=== PATIENT | female | born 1940 | race Caucasian/White ===

== ENCOUNTER 2016-09-27 07:21 | Day surgery (SDC) | payer MEDICARE ==
[~2016-09-27] VITALS: Ht 160 cm; Wt 67.0 kg
[~2016-09-27 07:21] MED LIST: BACT800T5 PO; LOSA50TA PO; METO50TA PO; OMPR20CCR PO
[2016-09-27 07:50] VITALS: BP 127/62; PULSE 81; RESP 18; TEMP 98.2; O2SAT 97
[2016-09-27] MEDS ORDERED: LOSA100T PO (07:50)
[2016-09-27] MEDS ORDERED: TRAM50TA PO (07:50)
[2016-09-27] MEDS ORDERED: SUCR1TAB PO (07:50)
[2016-09-27] MEDS ORDERED: METO50TA PO (07:50)
[2016-09-27] MEDS ORDERED: PANT40TA3 PO (07:50)
[2016-09-27] MEDS ORDERED: SODIUM CHLOR 0.9% 1000 ML INJ 1,000 ML IV SCH (08:00)
[2016-09-27 08:17] LABS: AUTOMATED NEUTROPHIL # 7.7 TH/MM3 (1.8-7.7); BASOPHIL # 0.1 TH/MM3 (0-0.2); BASOPHIL % 1.5 % (0.0-2.0); EOSINOPHIL # 0.1 TH/MM3 (0-0.4); EOSINOPHIL % 0.9 % (0.0-4.0); LYMPH % 7.3 % (9.0-44.0); LYMPHOCYTE # 0.7 TH/MM3 (1.0-4.8); MEAN CELL VOLUME 62.4 FL (80.0-100.0); MEAN CORPUSCULAR HEMOGLOBIN 18.9 PG (27.0-34.0); MEAN CORPUSCULAR HGB CONC 30.2 % (32.0-36.0); NEUT % 85.3 % (16.0-70.0); PLATELET COUNT 192 TH/MM3 (150-450); RED BLOOD COUNT 3.43 MIL/MM3 (4.00-5.30); WHITE BLOOD COUNT 9.1 TH/MM3 (4.0-11.0)
[2016-09-27 08:27] LABS: APTT (PATIENT) 23.4 SEC (24.3-30.1); INTERNATIONAL NORMALIZED RATIO 1.1 RATIO; PROTHROMBIN TIME - PATIENT 12.1 SEC (9.8-11.6)
[2016-09-27 08:32] LABS: HEMATOCRIT 21.4 % (35.0-46.0)
[2016-09-27 08:33] LABS: HEMO FLAGS DIFF FINAL
[2016-09-27 08:36] LABS: BICARBONATE 20.5 MEQ/L (21.0-32.0); POTASSIUM 4.3 MEQ/L (3.5-5.1)
== END 2016-09-27 10:40 | disposition home or self-care (01) ==
LOC: HROP 07:21 → HRIP 07:22 → HROP 10:40
PROVIDERS: ATTEND Internal Medicine Gastroenterology
DX: I74.09 Other arterial embolism and thrombosis of abdominal aorta (principal); I70.0 Atherosclerosis of aorta
CPT/HCPCS: 80048; 85025; 85610; 85730; 99211; G0463

== ENCOUNTER 2016-09-27 10:46 | Inpatient (IN) | payer MEDICARE ==
[~2016-09-27] VITALS: Ht 160 cm; Wt 65.6 kg
[~2016-09-27 10:46] MED LIST changes: +LOSA100T PO; +PANT40TA3 PO; +SUCR1TAB PO; +TRAM50TA PO
[2016-09-27 10:48] VITALS: BP 144/84; PULSE 84; RESP 20; TEMP 98.4; O2SAT 100
--- NOTE | 2016-09-27 11:27 | PD ---
HPI Chief Complaint: Abnormal Results Time Seen by Provider: 11:24 Travel History International Travel<30 days: No Contact w/Intl Traveler<30days: No Traveled to known affect area: No History of Present Illness HPI 75 YO F with PMH of HTN, CAD, COPD, GI bleed, PUD, anemia, colon CA presents to the ED for evaluation of "low blood count." The patient was scheduled to undergo endoscopic aortic grafting with Dr. Montenegro today but states that "I was too anemic." She endorses intermittent dizziness, dyspnea on exertion, pain in the legs with ambulation. She denies hemoptysis, hematemesis, hematochezia, melena, hematuria. She endorses panendoscopy in August with Dr. Beatty. She is a current 1.5ppd smoker. PCP Dr. Ruiz. [facility] Past Medical History Cancer: Yes (colon) Cardiac Catheterization: Yes Cardiovascular Problems: Yes (2 STENTS, WAS SUPPPOSED TO BE CATHED TODAY) Chemotherapy: Yes (11 YEARS AGO) Chest Pain: Yes COPD: Yes Diabetes: No Endocrine: No Genitourinary: No Hiatal Hernia: Yes Hypertension: Yes Immune Disorder: No Musculoskeletal: No Neurologic: No Reproductive: No Respiratory: Yes (COPD) Immunizations Current: Yes Thyroid Disease: No Tubal Ligation: Yes Past Surgical History AICD: No Section: Yes Joint Replacement: No Pacemaker: No Tonsillectomy: Yes Social History Alcohol Use: No Tobacco Use: Yes Substance Use: No Allergies-Medications (Allergen,Severity, Reaction): Coded Allergies: No Known Allergies (Verified , 09/27/16) Reported Meds & Prescriptions Reported Meds & Active Scripts Active Reported Tramadol (Tramadol HCl) 50 Mg Tab 50 Mg PO Q8H PRN Metoprolol Tartrate 50 Mg Tab 50 Mg PO DAILY Losartan (Losartan Potassium) 100 Mg Tab 100 Mg PO DAILY Pantoprazole (Pantoprazole Sodium) 40 Mg Tab 40 Mg PO BID Sucralfate 1 Gm Tab 1 Gm PO BID on empty stomach Review of Systems Except as stated in HPI: all other systems reviewed are Neg Physical Exam Narrative GENERAL: Well-nourished, well-developed pleasant white female in no acute distress. SKIN: Focused skin assessment pale, warm, dry. HEAD: Normocephalic. EYES: No scleral icterus. No injection or drainage. NECK: Supple, trachea midline. No JVD or lymphadenopathy. CARDIOVASCULAR: Regular rate and rhythm without murmurs, gallops, or rubs. RESPIRATORY: Breath sounds clear and equal bilaterally. No accessory muscle use. GASTROINTESTINAL: Abdomen soft, non-tender, nondistended. Active bowel sounds. RECTAL EXAM: No masses or tenderness, stool is brown. Guaiac positive. MUSCULOSKELETAL: No cyanosis, or edema. BLE exam:1+ DP pulses bilaterally. Strength 5/5 in bilateral lower extremities. Sensation intact to light touch distally. BACK: Nontender without obvious deformity. No CVA tenderness. Data Data Last Documented VS Vital Signs Date Time Temp Pulse Resp B/P Pulse Ox O2 Delivery O2 Flow Rate FiO2 09/27/16 10:48 98.4 84 20 144/84 100 Room Air Orders Complete Blood Count With Diff (09/27/16 11:40) Comprehensive Metabolic Panel (09/27/16 11:40) Iv Access Insert/Monitor (09/27/16 11:40) Type And Screen (09/27/16 11:40) Red Blood Cells (Rbc) (09/27/16 12:00) Blood Product Administration .UPON TRANSFUSION (09/27/16 12:00) Sodium Chlor 0.9% 250 Ml Inj (Ns 250 Ml (09/27/16 12:00) Diphenhydramine Inj (Benadryl Inj) (09/27/16 12:00) Acetaminophen (Tylenol) (09/27/16 12:00) Diet Heart Healthy (09/27/16 Lunch) Iron/Tibc Profile (09/27/16 12:00) Admit Order (Ed Use Only) (09/27/16 14:01) Labs Laboratory Tests Test 09/27/16 12:00 White Blood Count 9.2 TH/MM3 Red Blood Count 3.48 MIL/MM3 Hemoglobin 6.7 GM/DL Hematocrit 21.7 % Mean Corpuscular Volume 62.2 FL Mean Corpuscular Hemoglobin 19.3 PG Mean Corpuscular Hemoglobin 31.0 % Concent Red Cell Distribution Width 21.9 % Platelet Count 172 TH/MM3 Mean Platelet Volume 8.3 FL Neutrophils (%) (Auto) 83.5 % Lymphocytes (%) (Auto) 10.9 % Monocytes (%) (Auto) 3.8 % Eosinophils (%) (Auto) 0.6 % Basophils (%) (Auto) 1.2 % Neutrophils # (Auto) 7.7 TH/MM3 Lymphocytes # (Auto) 1.0 TH/MM3 Monocytes # (Auto) 0.3 TH/MM3 Eosinophils # (Auto) 0.1 TH/MM3 Basophils # (Auto) 0.1 TH/MM3 CBC Comment DIFF FINAL Differential Comment Sodium Level 137 MEQ/L Potassium Level 4.2 MEQ/L Chloride Level 106 MEQ/L Carbon Dioxide Level 22.6 MEQ/L Anion Gap 8 MEQ/L Blood Urea Nitrogen 16 MG/DL Creatinine 0.89 MG/DL Estimat Glomerular Filtration 62 ML/MIN Rate Random Glucose 99 MG/DL Calcium Level 8.8 MG/DL Iron Level 12 MCG/DL Total Iron Binding Capacity 514 MCG/DL Percent Iron Saturation 2.3 % Total Bilirubin 0.4 MG/DL Aspartate Amino Transf 18 U/L (AST/SGOT) Alanine Aminotransferase 15 U/L (ALT/SGPT) Alkaline Phosphatase 136 U/L Total Protein 7.3 GM/DL Albumin 3.4 GM/DL Blood Type B POSITIVE Antibody Screen NEGATIVE Crossmatch Leukocyte-Reduced Red Blood Cells Blood Bank Comment MDM Medical Decision Making Medical Screen Exam Complete: Yes Emergency Medical Condition: Yes Differential Diagnosis symptomatic anemia versus GI bleed versus colon CA versus electrolyte abnormality versus other Narrative Course 75 YO F with PMH of HTN, CAD, COPD, GI bleed, PUD, anemia, colon CA presents to the ED for evaluation of "low blood count." The patient was scheduled to undergo endoscopic aortic grafting with Dr. Montenegro today but states that "I was too anemic." She endorses intermittent dizziness, dyspnea on exertion, pain in the legs with ambulation. She denies hemoptysis, hematemesis, hematochezia, melena, hematuria. She endorses panendoscopy in August with Dr. Beatty. PCP Dr. Ruiz. Vitals reviewed. Physical exam reveals a pale white female in no acute distress. Chest clear to auscultation bilaterally. Abdomen soft, nontender. No edema in the lower extremities. Guaiac positive on rectal exam. CBC: WBC 9.2. Hemoglobin 6.7. Hematocrit 21.7. MCV 62.7. Iron: 12, TIBC 5.14. Type and screen ordered. 2 units PRBC, Benadryl and Tylenol ordered. Plan to admit to the hospitalist for further evaluation. Patient is agreeable to this plan. I spoke with Dr. Bray who agrees to accept the patient to the medicine service. Please see medicine notes for disposition. HemaPrompt Point of Care Internal Pos. & Neg. Controls: Passed Fecal Specimen Occult Blood: Positive Ebonie Keys Sep 27, 2016 11:27
[2016-09-27] MEDS ORDERED: ACETAMINOPHEN 325 MG TAB PO ONE (12:00)
[2016-09-27] MEDS ORDERED: SODIUM CHLOR 0.9% 250 ML INJ 250 ML IV ONE (12:00)
[2016-09-27] MEDS ORDERED: diphenhydrAMINE HCL 50 MG/ML VIAL IV ONE (12:00)
[2016-09-27 12:09] LABS: AUTOMATED NEUTROPHIL # 7.7 TH/MM3 (1.8-7.7); BASOPHIL # 0.1 TH/MM3 (0-0.2); BASOPHIL % 1.2 % (0.0-2.0); EOSINOPHIL # 0.1 TH/MM3 (0-0.4); EOSINOPHIL % 0.6 % (0.0-4.0); LYMPH % 10.9 % (9.0-44.0); MEAN CELL VOLUME 62.2 FL (80.0-100.0); MEAN CORPUSCULAR HEMOGLOBIN 19.3 PG (27.0-34.0); MONO % 3.8 % (0.0-8.0); NEUT % 83.5 % (16.0-70.0); PLATELET COUNT 172 TH/MM3 (150-450); RED BLOOD COUNT 3.48 MIL/MM3 (4.00-5.30); RED CELL DISTRIBUTION WIDTH 21.9 % (11.6-17.2); WHITE BLOOD COUNT 9.2 TH/MM3 (4.0-11.0)
[2016-09-27 12:20] LABS: HEMO FLAGS DIFF FINAL
[2016-09-27 12:21] LABS: HEMATOCRIT 21.7 % (35.0-46.0)
[2016-09-27 12:27] LABS: ANION GAP 8 MEQ/L (5-15); AST (GOT) 18 U/L (15-37); BICARBONATE 22.6 MEQ/L (21.0-32.0); BLOOD UREA NITROGEN 16 MG/DL (7-18); CHLORIDE 106 MEQ/L (98-107); GLOMERULAR FILTRATION RATE 62 ML/MIN (>89); POTASSIUM 4.2 MEQ/L (3.5-5.1); SODIUM (NA) 137 MEQ/L (136-145)
[2016-09-27 12:28] LABS: ALT (GPT) 15 U/L (10-53)
[2016-09-27 12:30] LABS: ALKALINE PHOSPHATASE 136 U/L (45-117); TOTAL BILIRUBIN ADULT 0.4 MG/DL (0.2-1.0)
[2016-09-27] MEDS ORDERED: HYDROmorphone HCL PF 1 MG/ML VIAL IVS ONE (12:30)
[2016-09-27 12:51] LABS: TRANSFERRIN IRON PROFILE 367 MG/DL (200-360)
[2016-09-27 14:11] VITALS: BP 129/60; PULSE 78; RESP 21; TEMP 96.7; O2SAT 97
[2016-09-27 14:31] VITALS: BP 130/62; PULSE 80; RESP 21; TEMP 97.4; O2SAT 100
--- NOTE | 2016-09-27 15:54 | HHI.HP ---
HPI Service [facility] Hospitalists Primary Care Physician Hitesh Ruiz MD (Paul) Admission Diagnosis anemia, GI bleed Chief Complaint: Anemia Travel History International Travel<30 Days: No Contact w/Intl Traveler <30 Da: No Traveled to Known Affected Are: No History of Present Illness Ms. Guardado is a pleasant 75 y/o WF with CAD s/p PTCA with stent placement in 2004, hx of colon cancer, GIB, gastric and colonic ulcers, HTN, and tobacco abuse. Pt presented to the ED for evaluation of anemia. She was previously admitted in 11/2015 with symptomatic anemia and post-prandial chest pain. At that time was taking a lot of NSAIDs. Pt received 4 units of PRBCs during that admission. She underwent evaluation with EGD/colonoscopy with Dr. Meadows which revealed multiple medium sized non-bleeding ulcers in the gastric antrum, medium sized non-bleeding ulcers in the duodenal bulb, duodenal inflammation was found int he bulb and second portion of the duodenum, multiple medium sized non-bleeding ulcers throughout the entire examined colon, and a pedunculated poly in the sigmoid colon. She was also admitted to [facility] in 2016 with symptomatic anemia and underwent evaluation with EGD on 07/08/16 which noted gastritis, gastric ulcer, duodenitis and hiatal hernia. She was again taking NSAIDs at that time and reports that she required blood transfusion during that admission. Pt followed with Dr. Aguirre as an outpt and was sent for a CTA of the abd/pelvis which revealed high grade distal aortic stenosis and severe diffuse iliac disease, large cystic left adnexal mass but the mesenteric vessels appear intact and relatively healthy. The patient was scheduled to undergo endovascular procedure with IR today with Dr. Montenegro but pre- op labs revealed a significant anemia and pt was sent to the ED for blood transfusion. Her Hgb was 6.5/Hct 31.4, MCV 62.4. She was noted to be Hemoccult positive in the ED. Pt reports that she has had some intermittent dizziness, dyspnea on exertion for the last few weeks. She has significant claudication which she reports limits her ability to do much at home. She has not been eating well because she can't stand up to cook any food. She denies hematemesis , hematochezia, melena, hematuria. She noted some faint BRBPR on the tissue today when she wiped but otherwise has not noted any active GIB. Pt denies any abdominal pain, palpitations, nausea/vomiting. She has had some minimal reflux. Pt reports that she has been compliant with her Protonix and Carafate. She denies any NSAID use since 07/2016. Review of Systems Constitutional: DENIES: Fever, Chills Eyes: DENIES: Vision loss Ears, nose, mouth, throat: DENIES: Epistaxis Respiratory: DENIES: Cough Cardiovascular: COMPLAINS OF: Chest pain (chronic), Dyspnea on Exertion, DENIES: Palpitations, Lower Extremity Edema Gastrointestinal: COMPLAINS OF: BRB per rectum, See HPI, DENIES: Abdominal pain, Black stools, Bloody stools, Constipation, Diarrhea, Nausea, Vomiting Genitourinary: DENIES: Hematuria, Dysuria Musculoskeletal: DENIES: Back pain Integumentary: DENIES: Rash Hematologic/lymphatic: DENIES: Bruising Neurologic: DENIES: Headache Psychiatric: DENIES: Confusion Past Family Social History Past Medical History CAD HTN Tobacco abuse Hyperlipidemia Hx of colon/rectal cancer Valvular heart disease COPD, PFT in 08/2015 with FEV1 74% predicted 2D echo (01/04/2012) - Moderate concentric hypertrophy, hyperdynamic systolic function with EF 70% - Evidence of diastolic dysfunction - LA is mildly dilated - Aortic sclerosis without stenosis - Mild thickening of the mitral valve leaflets, moderate mitral regurgitation , mild mitral annular calcification Past Surgical History Cesarian section x 2 Tubal ligation PTCA with stent placement EGD/colonoscopy with Dr. Meadows 11/26/15 - multiple medium sized non-bleeding ulcers in the gastric antrum, biopsies were taken - medium sized non-bleeding ulcers in the duodenal bulb, biopsies were taken - duodenal inflammation was found int he bulb and second portion of the duodenum - multiple medium sized non-bleeding ulcers throughout the entire examined colon, biopsies were taken - a pedunculated poly in the sigmoid colon; polypectomy performed Reported Medications Tramadol (Tramadol HCl) 50 Mg Tab 50 Mg PO Q8H PRN Metoprolol Tartrate 50 Mg Tab 50 Mg PO DAILY Losartan (Losartan Potassium) 100 Mg Tab 100 Mg PO DAILY Pantoprazole (Pantoprazole Sodium) 40 Mg Tab 40 Mg PO BID Sucralfate 1 Gm Tab 1 Gm PO BID on empty stomach Allergies: Coded Allergies: No Known Allergies (Verified , 09/27/16) Family History Noncontributory Social History Pt smokes 1ppd but was previously a 3ppd smoker x 60 years Rare alcohol use Denies any drug use Physical Exam Vital Signs Vital Signs Date Time Temp Pulse Resp B/P Pulse Ox O2 Delivery O2 Flow Rate FiO2 09/27/16 14:31 97.4 80 21 130/62 100 Room Air 09/27/16 14:11 96.7 78 21 129/60 97 09/27/16 10:48 98.4 84 20 144/84 100 Room Air Physical Exam GENERAL: This is a well-nourished, well-developed patient, in no apparent distress. SKIN: No rashes, ecchymoses or lesions. Cool and dry. HEAD: Atraumatic. Normocephalic. No temporal or scalp tenderness. EYES: Pupils equal round and reactive. Extraocular motions intact. No scleral icterus. No injection or drainage. ENT: Nose without bleeding, purulent drainage or septal hematoma. Throat without erythema, tonsillar hypertrophy or exudate. Uvula midline. Airway patent. NECK: Trachea midline. No JVD or lymphadenopathy. Supple, nontender, no meningeal signs. CARDIOVASCULAR: Regular rate and rhythm without murmurs, gallops, or rubs. RESPIRATORY: Clear to auscultation. Breath sounds equal bilaterally. No wheezes , rales, or rhonchi. GASTROINTESTINAL: Abdomen soft, non-tender, nondistended. No hepato-splenomegaly , or palpable masses. No guarding. MUSCULOSKELETAL: Extremities without clubbing, cyanosis, or edema. No joint tenderness, effusion, or edema noted. No calf tenderness. Negative Homans sign bilaterally. NEUROLOGICAL: Awake and alert. Cranial nerves II through XII intact. Motor and sensory grossly within normal limits. Five out of 5 muscle strength in all muscle groups. Normal speech. Laboratory Laboratory Tests Test 09/27/16 12:00 White Blood Count 9.2 Red Blood Count 3.48 Hemoglobin 6.7 Hematocrit 21.7 Mean Corpuscular Volume 62.2 Mean Corpuscular Hemoglobin 19.3 Mean Corpuscular Hemoglobin 31.0 Concent Red Cell Distribution Width 21.9 Platelet Count 172 Mean Platelet Volume 8.3 Neutrophils (%) (Auto) 83.5 Lymphocytes (%) (Auto) 10.9 Monocytes (%) (Auto) 3.8 Eosinophils (%) (Auto) 0.6 Basophils (%) (Auto) 1.2 Neutrophils # (Auto) 7.7 Lymphocytes # (Auto) 1.0 Monocytes # (Auto) 0.3 Eosinophils # (Auto) 0.1 Basophils # (Auto) 0.1 CBC Comment DIFF FINAL Differential Comment Sodium Level 137 Potassium Level 4.2 Chloride Level 106 Carbon Dioxide Level 22.6 Anion Gap 8 Blood Urea Nitrogen 16 Creatinine 0.89 Estimat Glomerular Filtration 62 Rate Random Glucose 99 Calcium Level 8.8 Iron Level 12 Total Iron Binding Capacity 514 Percent Iron Saturation 2.3 Total Bilirubin 0.4 Aspartate Amino Transf 18 (AST/SGOT) Alanine Aminotransferase 15 (ALT/SGPT) Alkaline Phosphatase 136 Total Protein 7.3 Albumin 3.4 Blood Type B POSITIVE Antibody Screen NEGATIVE Crossmatch Leukocyte-Reduced Red Blood Cells Blood Bank Comment Result Diagram: 09/27/16 1200 09/27/16 1200 Septic Shock Reassessment Heart: Regular rate and rhythm Lungs: Clear Skin: Warm Assessment and Plan Problem List: (1) Symptomatic anemia Status: Acute Plan: - Pt is a 75 y/o female with CAD s/p PTCA with stent placement in 2004, hx of colon cancer, GIB, gastric and colonic ulcers. - She presented to the ED for evaluation of anemia. - She was previously admitted in 11/2015 with symptomatic anemia and post- prandial chest pain and at that time was taking a lot of NSAIDs. Pt received 4 units of PRBCs during that admission. She underwent EGD/colonoscopy with Dr. Meadows 11/26/15 which revealed multiple medium sized non-bleeding ulcers in the gastric antrum , medium sized non-bleeding ulcers in the duodenal bulb, duodenal inflammation was found int he bulb and second portion of the duodenum, multiple medium sized non-bleeding ulcers throughout the entire examined colon, and a pedunculated poly in the sigmoid colon. - She was also admitted to [facility] in 07/2016 with symptomatic anemia and had an EGD on 07/08/16 --> gastritis, gastric ulcer, duodenitis and hiatal hernia. - Pt had been scheduled to undergo endovascular procedure with IR today with Dr. Montenegro but pre-op labs revealed a significant anemia and pt was sent to the ED for blood transfusion. Her Hgb was 6.5/Hct 31.4, MCV 62.4. She was noted to be Hemoccult positive in the ED. No obvious GIB. - Pt noted to be iron deficient as well and has not been eating well. - Pt currently receiving 2 units PRBCs in the ED - We will give IV Venofer. She states that in the past oral iron supplements have given her diarrhea. - Consult gastroenterology - Protonix 40mg IV BID - Cont. Carafate - Monitor H/H - Supportive care - DVT prophylaxis with SCDs (2) Arterial vascular disease Status: Acute Plan: - Pt had an outpt CTA of the abd/pelvis which revealed high grade distal aortic stenosis and severe diffuse iliac disease, large cystic left adnexal mass but the mesenteric vessels appear intact and relatively healthy. - The patient was scheduled to undergo endovascular procedure with IR today with Dr. Montenegro but due to anemia this was cancelled. - Pt is very concerned about being able to have this procedure performed because it is significantly limiting her daily life due to claudication. - Discussed with the pt that should she have endovascular stenting that she would likely require anticoagulants and that the risks/benefits of proceeding with this would need to be discussed with GI due to her hx of GIB and anemia - She has been referred as an outpt to [facility] for the adnexal mass (3) HTN (hypertension) Status: Chronic Plan: - Home meds continued - Monitor (4) CAD (coronary artery disease) Status: Chronic (5) Tobacco abuse Status: Chronic Plan: - Tobacco cessation. Assessment and Plan Patient examined. Assessment and plan formulated with Nafisa Parker PA-C. I agree with the above. admitted for symptomatic anemia. blood loss. heme pos stool with hx of gastric ulcers/duodenal ulcers/colonic ulcers. past hx nsaid induced ulcers. pt now denies nsaid use. her aorta and iliac stent placed on hold. 2 units blood, iv iron, GI consult for egd prior to referral back to IR to assure ok to proceed with planned procedure. Physician Certification 2 Midnight Certification Type: Admission for Inpatient Services Order for Inpatient Services The services are ordered in accordance with Medicare regulations or non- Medicare payer requirements, as applicable. In the case of services not specified as inpatient-only, they are appropriately provided as inpatient services in accordance with the 2-midnight benchmark. Estimated LOS (days): 3 3 days is the estimated time the patient will need to remain in the hospital, assuming treatment plan goals are met and no additional complications. Post-Hospital Plan: Not yet determined Nafisa Parker Sep 27, 2016 15:54 Marvin Bray MD Sep 27, 2016 21:55
[2016-09-27] MEDS ORDERED: ACETAMINOPHEN 325 MG TAB PO PRN (16:00)
[2016-09-27] MEDS ORDERED: ONDANSETRON HCL 4 MG/2 ML VIAL IV PRN (16:00)
[2016-09-27 16:57] VITALS: BP 141/65; PULSE 68; RESP 21; TEMP 98.9; O2SAT 100
--- NOTE | 2016-09-27 16:58 | PD.CONS ---
HPI History of Present Illness This is a 75 year old female with hx CAD s/p stenting, GIB, gastric and colonic ulcers, colon ca, who presented to the ER for anemia after returned labwork for an endovascular procedure scheduled for today, found to have hgb 6.8 and guiac pos stool. She admits vaginal bleeding just today, pale pink and she thinks from strain to come down stairs. Same for the rectal bleeding, faint pink and just today. She does have occasional BRBPR, scant spots on wipe intermittently if she has frequent BM. She was diagnosed with colon ca 12 years ago, treated with radiation and chemo, fully in remission. She had EGD and colonoscopy in July [address] Aguirre, findings gastritis, hiatal hernia, gastric ulcer, duodenitis, colon polyp, path benign. Prior she had EGD and colonoscopy with Dr Meadows with findings of non-bleeding ulcers antrum duodenal bulb and colon, polyp sigmoid. She has hx frequent NSAID use up until July 2016, her last admission at [facility]. Not on blood thinners. No pacemaker. No dark tarry stools, abd pain, vomiting, weight loss. She has been having leg pain and weakness. (Stephanie Plaza) PFSH Past Medical History hx colon ca seasonal allergies "chronic cigarette cough" claudication Past Surgical History c section x 2 tonsillectomy (Stephanie Plaza) Coded Allergies: No Known Allergies (Verified , 09/27/16) Family History DM CVD thyroid "problems" prostate ca Social History rare ETOH 1ppd no illicit drug use (Stephanie Plaza) Review of Systems Constitutional: COMPLAINS OF: Fever (mild subjective occasionally), DENIES: Weight loss Eyes: DENIES: Blurred vision Ears, nose, mouth, throat: DENIES: Hearing loss Respiratory: COMPLAINS OF: Cough, DENIES: Hemoptysis Cardiovascular: DENIES: Palpitations Gastrointestinal: COMPLAINS OF: Nausea, DENIES: Abdominal pain, Black stools, Bloody stools, Constipation, Diarrhea, Vomiting, Hematemesis Genitourinary: DENIES: Hematuria Musculoskeletal: DENIES: Joint Swelling Integumentary: DENIES: Jaundice Neurologic: COMPLAINS OF: Localized weakness (weakness, pain in legs) Psychiatric: DENIES: Confusion (Mela,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) GI Exam Vitals I&O Vital Signs Date Time Temp Pulse Resp B/P Pulse Ox O2 Delivery O2 Flow Rate FiO2 09/27/16 14:31 97.4 80 21 130/62 100 Room Air 09/27/16 14:11 96.7 78 21 129/60 97 09/27/16 10:48 98.4 84 20 144/84 100 Room Air Laboratory Test 09/27/16 12:00 White Blood Count 9.2 TH/MM3 Red Blood Count 3.48 MIL/MM3 Hemoglobin 6.7 GM/DL Hematocrit 21.7 % Mean Corpuscular Volume 62.2 FL Mean Corpuscular Hemoglobin 19.3 PG Mean Corpuscular Hemoglobin 31.0 % Concent Red Cell Distribution Width 21.9 % Platelet Count 172 TH/MM3 Mean Platelet Volume 8.3 FL Neutrophils (%) (Auto) 83.5 % Lymphocytes (%) (Auto) 10.9 % Monocytes (%) (Auto) 3.8 % Eosinophils (%) (Auto) 0.6 % Basophils (%) (Auto) 1.2 % Neutrophils # (Auto) 7.7 TH/MM3 Lymphocytes # (Auto) 1.0 TH/MM3 Monocytes # (Auto) 0.3 TH/MM3 Eosinophils # (Auto) 0.1 TH/MM3 Basophils # (Auto) 0.1 TH/MM3 CBC Comment DIFF FINAL Differential Comment Sodium Level 137 MEQ/L Potassium Level 4.2 MEQ/L Chloride Level 106 MEQ/L Carbon Dioxide Level 22.6 MEQ/L Anion Gap 8 MEQ/L Blood Urea Nitrogen 16 MG/DL Creatinine 0.89 MG/DL Estimat Glomerular Filtration 62 ML/MIN Rate Random Glucose 99 MG/DL Calcium Level 8.8 MG/DL Iron Level 12 MCG/DL Total Iron Binding Capacity 514 MCG/DL Percent Iron Saturation 2.3 % Total Bilirubin 0.4 MG/DL Aspartate Amino Transf 18 U/L (AST/SGOT) Alanine Aminotransferase 15 U/L (ALT/SGPT) Alkaline Phosphatase 136 U/L Total Protein 7.3 GM/DL Albumin 3.4 GM/DL Blood Type B POSITIVE Antibody Screen NEGATIVE Crossmatch Leukocyte-Reduced Red Blood Cells Blood Bank Comment Physical Examination HEENT: PERRL; normocephalic; atraumatic; no jaundice. CHEST: CTA CARDIAC: RRR ABDOMEN: Soft, nondistended, nontender; no hepatosplenomegaly; bowel sounds are present in all four quadrants. EXTREMITIES: No clubbing, cyanosis, or edema. SKIN: Normal; no rash; no jaundice. CLIENT ACCOUNT REPRESENTATIVE: No focal deficits; alert and oriented times three. (Stephanie Plaza) Assessment and Plan Plan ASSESSMENT - anemia - Hgb 6.8 on admission. hypchromic, microcytic, poss LORELEI. iron 12L, TIBC 514H, sat 2.3L hx gastric, duodenal, and colonic ulcers. EGD/COLONOSCOPY 07/2016 --> gastritis, gastric ulcer, duodenitis, hiatal hernia, colon polyp. Frequent NSAID use until 07/2016. pt admits seeing pale pink tinge on wipe today but none prior. PLAN - EGD in am - obtain consents - NPO after midnight - SU today - monitor HH - transfuse as needed - further recommendations to follow This pt seen by myself and Dr Perdomo and this note is written on his behalf ( Stephanie Plaza) Physician Comments Patient seen and examined Agree with above Continue with current supportive care Monitor labs We will plan for an EGD tomorrow (Jefe Perdomo MD) Stephanie Plaza Sep 27, 2016 16:58 Jefe Perdomo MD Sep 27, 2016 22:57
[2016-09-27] MEDS: PANTOPRAZOLE SODIUM 40 MG VIAL IV PUSH SCH (17:57)
[2016-09-27 18:20] VITALS: BP 142/68; PULSE 81; RESP 17; TEMP 99.2; O2SAT 99
[2016-09-27 20:00] VITALS: BP 173/71; PULSE 83; RESP 21; TEMP 97.1; O2SAT 97
[2016-09-27] MEDS: SUCRALFATE 1 GM TAB PO SCH (21:00)
[2016-09-27] MEDS: IRON SUCROSE INJ 200 MG in SODIUM CHLORIDE 0.9% INJ 100 ML IV SCH (23:12)
[2016-09-28] VITALS (9 sets, daily range): BP systolic 118–184; BP diastolic 56–79; PULSE 72–89; RESP 16–20; TEMP 96.4–98.2; O2SAT 93–98
[2016-09-28] MEDS ORDERED: SODIUM CHLORID 0.9% 500 ML IV PRN (01:30)
[2016-09-28] MEDS ORDERED: CHLORHEXIDINE GLUCONATE 2 % 1 PACK (2 CLOTHS) TOPICAL PRN (01:30)
[2016-09-28] MEDS ORDERED: INSULIN HUMAN REGULAR 1,000 UNITS/10 ML VIAL SQ PRN (01:30)
[2016-09-28] MEDS ORDERED: LACTATED RINGER'S 1000 ML IV PRN (01:30)
[2016-09-28] MEDS ORDERED: POVIDONE IODINE 5% (ANTISEPSIS KIT) 4 APPLICATIONS EACH NARE PRN (01:30)
[2016-09-28] MEDS: PANTOPRAZOLE SODIUM 40 MG VIAL IV PUSH SCH ×2 (05:27→17:00)
[2016-09-28 05:57] LABS: BICARBONATE 23.5 MEQ/L (21.0-32.0); MAGNESIUM 2.3 MG/DL (1.5-2.5)
[2016-09-28 06:00] LABS: AUTOMATED NEUTROPHIL # 5.3 TH/MM3 (1.8-7.7); BASOPHIL # 0.1 TH/MM3 (0-0.2); EOSINOPHIL # 0.2 TH/MM3 (0-0.4); EOSINOPHIL % 2.5 % (0.0-4.0); HEMATOCRIT 31.3 % (35.0-46.0); LYMPH % 11.4 % (9.0-44.0); LYMPHOCYTE # 0.8 TH/MM3 (1.0-4.8); MEAN CELL VOLUME 69.9 FL (80.0-100.0); MEAN CORPUSCULAR HEMOGLOBIN 22.6 PG (27.0-34.0); MEAN CORPUSCULAR HGB CONC 32.3 % (32.0-36.0); MONO % 6.6 % (0.0-8.0); NEUT % 78.5 % (16.0-70.0); PLATELET COUNT 134 TH/MM3 (150-450); RED BLOOD COUNT 4.48 MIL/MM3 (4.00-5.30); RED CELL DISTRIBUTION WIDTH 26.8 % (11.6-17.2); WHITE BLOOD COUNT 6.7 TH/MM3 (4.0-11.0)
[2016-09-28 06:36] LABS: HEMO FLAGS AUTO DIFF
[2016-09-28] MEDS: METOPROLOL TARTRATE 50 MG TAB PO SCH (08:37)
[2016-09-28] MEDS: LOSARTAN 50 MG TAB PO SCH (09:00)
[2016-09-28] MEDS: NICOTINE 21 MG/24 HR PATCH T-DERMAL SCH (09:00)
[2016-09-28] MEDS: SUCRALFATE 1 GM TAB PO SCH ×2 (09:00→21:47)
[2016-09-28] MEDS: IRON SUCROSE INJ 200 MG in SODIUM CHLORIDE 0.9% INJ 100 ML IV SCH (09:00)
[2016-09-28] MEDS ORDERED: PROPOFOL 200 MG/20 ML AMP IV ONE (09:21)
--- NOTE | 2016-09-28 09:31 | PD.PROCEDR ---
GI Procedure REFERRING PHYSICIAN Dr. Bray PROCEDURE PERFORMED EGD with cautery/ablation INDICATION FOR PROCEDURE Anemia PROCEDURE: The procedure, risks and benefits were discussed with Ms. Guardado and informed consent was obtained. Anesthesia sedated her with Diprivan. She was placed in the left lateral decubitus position. EGD: The Pentax videoscope was introduced through the oropharynx and advanced to the second portion of the duodenum under direct visualization. Retroflexion was performed in the stomach. FINDINGS: Esophagus this was normal Stomach there was patchy erythema in the antrum but no ulcerations or erosions no blood or bleeding Duodenum there were multiple AVMs noted in the duodenal bulb and descending duodenum all were ablated with a ball-tipped heater probe otherwise duodenum was unremarkable ESTIMATED BLOOD LOSS: None SPECIMENS REMOVED: None COMPLICATIONS: None IMPRESSION: Mild gastritis Duodenal AVMs PLAN: Continue with current supportive care Advance diet Continue Protonix Monitor labs and transfuse as needed Recommend outpatient capsule endoscopy Follow-up with GI post discharge Jefe Perdomo MD Sep 28, 2016 09:31
[2016-09-28 10:19] LABS: SCAN/DIFF AUTO DIFF CONFIRMED
[2016-09-28] MEDS ORDERED: cloNIDine HCL 0.1 MG TAB PO PRN (10:45)
--- NOTE | 2016-09-28 13:06 | HHI.PR ---
Subjective Remarks Pt had EGD today which revealed patchy erythema in the antrum but no ulcerations or erosions no blood or bleeding and in the duodenum there were multiple AVMs noted in the duodenal bulb and descending duodenum which were ablated with a ball-tipped heater probe. Pt tolerating diet post-procedure. She is demanding to see IR about doing the endovascular procedure which she was supposed to have done yesterday. Objective Vitals Vital Signs Date Time Temp Pulse Resp B/P Pulse Ox O2 Delivery O2 Flow Rate FiO2 09/28/16 12:00 96.4 72 16 142/66 95 09/28/16 09:47 74 18 188/86 100 09/28/16 09:37 71 18 187/84 98 09/28/16 09:27 98.0 70 18 177/80 100 09/28/16 08:00 97.7 89 16 157/67 94 09/28/16 05:51 78 144/68 09/28/16 04:00 96.6 89 20 182/77 94 09/28/16 00:00 97.3 85 20 162/70 93 09/27/16 20:00 97.1 83 21 173/71 97 09/27/16 18:20 99.2 81 17 142/68 99 09/27/16 16:57 98.9 68 21 141/65 100 Room Air 09/27/16 14:31 97.4 80 21 130/62 100 Room Air 09/27/16 14:11 96.7 78 21 129/60 97 09/27/16 09/27/16 09/28/16 14:59 22:59 06:59 Intake Total 490 ml Balance 490 ml Intake Oral 240 ml Packed Cells 250 ml # Voids 2 2 Result Diagram: 09/28/16 0346 09/28/16 0346 Other Results Laboratory Tests Test 09/27/16 09/28/16 12:00 03:46 White Blood Count 9.2 TH/MM3 6.7 TH/MM3 Red Blood Count 3.48 MIL/MM3 4.48 MIL/MM3 Hemoglobin 6.7 GM/DL 10.1 GM/DL Hematocrit 21.7 % 31.3 % Mean Corpuscular Volume 62.2 FL 69.9 FL Mean Corpuscular Hemoglobin 19.3 PG 22.6 PG Mean Corpuscular Hemoglobin 31.0 % 32.3 % Concent Red Cell Distribution Width 21.9 % 26.8 % Platelet Count 172 TH/MM3 134 TH/MM3 Mean Platelet Volume 8.3 FL 8.3 FL Neutrophils (%) (Auto) 83.5 % 78.5 % Lymphocytes (%) (Auto) 10.9 % 11.4 % Monocytes (%) (Auto) 3.8 % 6.6 % Eosinophils (%) (Auto) 0.6 % 2.5 % Basophils (%) (Auto) 1.2 % 1.0 % Neutrophils # (Auto) 7.7 TH/MM3 5.3 TH/MM3 Lymphocytes # (Auto) 1.0 TH/MM3 0.8 TH/MM3 Monocytes # (Auto) 0.3 TH/MM3 0.4 TH/MM3 Eosinophils # (Auto) 0.1 TH/MM3 0.2 TH/MM3 Basophils # (Auto) 0.1 TH/MM3 0.1 TH/MM3 CBC Comment DIFF FINAL AUTO DIFF Differential Comment AUTO DIFF CONFIRMED Sodium Level 137 MEQ/L 141 MEQ/L Potassium Level 4.2 MEQ/L 4.0 MEQ/L Chloride Level 106 MEQ/L 109 MEQ/L Carbon Dioxide Level 22.6 MEQ/L 23.5 MEQ/L Anion Gap 8 MEQ/L 9 MEQ/L Blood Urea Nitrogen 16 MG/DL 20 MG/DL Creatinine 0.89 MG/DL 0.80 MG/DL Estimat Glomerular Filtration 62 ML/MIN 70 ML/MIN Rate Random Glucose 99 MG/DL 83 MG/DL Calcium Level 8.8 MG/DL 8.8 MG/DL Iron Level 12 MCG/DL Total Iron Binding Capacity 514 MCG/DL Percent Iron Saturation 2.3 % Total Bilirubin 0.4 MG/DL Aspartate Amino Transf 18 U/L (AST/SGOT) Alanine Aminotransferase 15 U/L (ALT/SGPT) Alkaline Phosphatase 136 U/L Total Protein 7.3 GM/DL Albumin 3.4 GM/DL Blood Type B POSITIVE Antibody Screen NEGATIVE Crossmatch Leukocyte-Reduced Red Blood Cells Blood Bank Comment Magnesium Level 2.3 MG/DL Objective Remarks General: NAD< AAOx3 Chest: CTA bilaterally Cardiac: Regular Abd: +BS, soft ND/NT Ext: No edema A/P Problem List: (1) Symptomatic anemia Status: Acute Plan: - Pt is a 75 y/o female with CAD s/p PTCA with stent placement in 2004, hx of colon cancer, GIB, gastric and colonic ulcers. - She presented to the ED for evaluation of anemia. - She was previously admitted in 11/2015 with symptomatic anemia and post- prandial chest pain and at that time was taking a lot of NSAIDs. Pt received 4 units of PRBCs during that admission. She underwent EGD/colonoscopy with Dr. Meadows 11/26/15 which revealed multiple medium sized non-bleeding ulcers in the gastric antrum , medium sized non-bleeding ulcers in the duodenal bulb, duodenal inflammation was found int he bulb and second portion of the duodenum, multiple medium sized non-bleeding ulcers throughout the entire examined colon, and a pedunculated poly in the sigmoid colon. - She was also admitted to [facility] in 07/2016 with symptomatic anemia and had an EGD on 07/08/16 --> gastritis, gastric ulcer, duodenitis and hiatal hernia. - Pt had been scheduled to undergo endovascular procedure with IR today with Dr. Montenegro but pre-op labs revealed a significant anemia and pt was sent to the ED for blood transfusion. Her Hgb was 6.5/Hct 31.4, MCV 62.4. She was noted to be Hemoccult positive in the ED. No obvious GIB. - Pt noted to be iron deficient as well and has not been eating well. - Pt received 2 units PRBCs with improvement in her Hgb to 10 today - Cont. IV Venofer. She states that in the past oral iron supplements have given her diarrhea. - Appreciate gastroenterology consultation - Pt underwent EGD (09/28) --> patchy erythema in the antrum but no ulcerations or erosions no blood or bleeding and in the duodenum there were multiple AVMs noted in the duodenal bulb and descending duodenum which were ablated with a ball-tipped heater probe. - Protonix 40mg IV BID - Cont. Carafate - Monitor H/H - Supportive care - DVT prophylaxis with SCDs (2) Arterial vascular disease Status: Acute Plan: - Pt had an outpt CTA of the abd/pelvis which revealed high grade distal aortic stenosis and severe diffuse iliac disease, large cystic left adnexal mass but the mesenteric vessels appear intact and relatively healthy. - The patient was scheduled to undergo endovascular procedure with IR today with Dr. Montenegro but due to anemia this was cancelled. - Pt is very concerned about being able to have this procedure performed because it is significantly limiting her daily life due to claudication. - Discussed with the pt that should she have endovascular stenting that she would likely require anticoagulants and that the risks/benefits of proceeding with this would need to be discussed with GI due to her hx of GIB and anemia - Pt demanding to see IR - She has been referred as an outpt to [facility] for the adnexal mass (3) HTN (hypertension) Status: Chronic Plan: - Home meds continued - Monitor (4) CAD (coronary artery disease) Status: Chronic (5) Tobacco abuse Status: Chronic Plan: - Tobacco cessation. Assessment and Plan Patient examined. Assessment and plan formulated with Nafisa Parker PA-C. I agree with the above. acute and chronic blood loss anemia. recent gastric/duodenal ulcers. now egd today duodenal avm's cauterized. pill endoscopy recommended. 2units blood and iv iron given. pt wants to proceed with IR consult and stenting of aorta and iliac as she is having alot of pain. she is counseled that if a drug such as plavix is needed then it could exacerbate her gib risks. she wants to proceed. Nafisa Parker Sep 28, 2016 13:06 Marvin Bray MD Sep 28, 2016 16:04
[2016-09-28] MEDS: REMOVE OLD NICODERM (NICOTINE) PATCH T-DERMAL SCH (21:00)
[2016-09-28] MEDS: TEMAZEPAM 15 MG CAP PO PRN (22:55)
[2016-09-29] VITALS (11 sets, daily range): BP systolic 123–166; BP diastolic 51–82; PULSE 61–95; RESP 16–20; TEMP 96.5–97.8; O2SAT 93–99
[2016-09-29] MEDS: PANTOPRAZOLE SODIUM 40 MG VIAL IV PUSH SCH (05:02)
[2016-09-29 05:45] LABS: HEMATOCRIT 31.2 % (35.0-46.0); MEAN CELL VOLUME 69.3 FL (80.0-100.0); MEAN CORPUSCULAR HEMOGLOBIN 22.8 PG (27.0-34.0); PLATELET COUNT 141 TH/MM3 (150-450); RED CELL DISTRIBUTION WIDTH 27.3 % (11.6-17.2); WHITE BLOOD COUNT 7.2 TH/MM3 (4.0-11.0)
[2016-09-29 05:51] LABS: REVIEW FLAG FINAL
[2016-09-29] MEDS: NICOTINE 21 MG/24 HR PATCH T-DERMAL SCH (09:00)
--- NOTE | 2016-09-29 10:22 | HHI.PR ---
Subjective Remarks Pt without any new complaints. She is planned for IR intervention today for aortic stenting per the nurse She is NPO Objective Vitals Vital Signs Date Time Temp Pulse Resp B/P Pulse Ox O2 Delivery O2 Flow Rate FiO2 09/29/16 08:00 96.6 64 16 137/65 96 09/29/16 04:13 96.5 95 18 140/65 95 09/28/16 23:45 98.2 78 18 118/56 98 09/28/16 21:00 77 09/28/16 20:03 97.6 80 18 184/79 97 09/28/16 16:00 98.0 75 16 138/61 95 09/28/16 12:00 96.4 72 16 142/66 95 09/28/16 09/28/16 09/29/16 15:00 23:00 07:00 Intake Total 580 ml 480 ml Output Total 1000 ml Balance 580 ml 480 ml -1000 ml Intake Oral 480 ml 480 ml Other 100 ml Output Urine Total 1000 ml # Voids 3 2 # Bowel Movements 0 Result Diagram: 09/29/16 0344 09/28/16 0346 Other Results Laboratory Tests Test 09/27/16 09/28/16 09/29/16 12:00 03:46 03:44 White Blood Count 9.2 TH/MM3 6.7 TH/MM3 7.2 TH/MM3 Red Blood Count 3.48 MIL/MM3 4.48 MIL/MM3 4.50 MIL/MM3 Hemoglobin 6.7 GM/DL 10.1 GM/DL 10.3 GM/DL Hematocrit 21.7 % 31.3 % 31.2 % Mean Corpuscular Volume 62.2 FL 69.9 FL 69.3 FL Mean Corpuscular Hemoglobin 19.3 PG 22.6 PG 22.8 PG Mean Corpuscular Hemoglobin 31.0 % 32.3 % 33.0 % Concent Red Cell Distribution Width 21.9 % 26.8 % 27.3 % Platelet Count 172 TH/MM3 134 TH/MM3 141 TH/MM3 Mean Platelet Volume 8.3 FL 8.3 FL 8.9 FL Neutrophils (%) (Auto) 83.5 % 78.5 % Lymphocytes (%) (Auto) 10.9 % 11.4 % Monocytes (%) (Auto) 3.8 % 6.6 % Eosinophils (%) (Auto) 0.6 % 2.5 % Basophils (%) (Auto) 1.2 % 1.0 % Neutrophils # (Auto) 7.7 TH/MM3 5.3 TH/MM3 Lymphocytes # (Auto) 1.0 TH/MM3 0.8 TH/MM3 Monocytes # (Auto) 0.3 TH/MM3 0.4 TH/MM3 Eosinophils # (Auto) 0.1 TH/MM3 0.2 TH/MM3 Basophils # (Auto) 0.1 TH/MM3 0.1 TH/MM3 CBC Comment DIFF FINAL AUTO DIFF Differential Comment AUTO DIFF CONFIRMED Sodium Level 137 MEQ/L 141 MEQ/L Potassium Level 4.2 MEQ/L 4.0 MEQ/L Chloride Level 106 MEQ/L 109 MEQ/L Carbon Dioxide Level 22.6 MEQ/L 23.5 MEQ/L Anion Gap 8 MEQ/L 9 MEQ/L Blood Urea Nitrogen 16 MG/DL 20 MG/DL Creatinine 0.89 MG/DL 0.80 MG/DL Estimat Glomerular Filtration 62 ML/MIN 70 ML/MIN Rate Random Glucose 99 MG/DL 83 MG/DL Calcium Level 8.8 MG/DL 8.8 MG/DL Iron Level 12 MCG/DL Total Iron Binding Capacity 514 MCG/DL Percent Iron Saturation 2.3 % Total Bilirubin 0.4 MG/DL Aspartate Amino Transf 18 U/L (AST/SGOT) Alanine Aminotransferase 15 U/L (ALT/SGPT) Alkaline Phosphatase 136 U/L Total Protein 7.3 GM/DL Albumin 3.4 GM/DL Blood Type B POSITIVE Antibody Screen NEGATIVE Crossmatch Leukocyte-Reduced Red Blood Cells Blood Bank Comment Magnesium Level 2.3 MG/DL Objective Remarks General: NAD< AAOx3 Chest: CTA bilaterally Cardiac: Regular Abd: +BS, soft ND/NT Ext: No edema A/P Problem List: (1) Symptomatic anemia Status: Acute Plan: - Pt is a 75 y/o female with CAD s/p PTCA with stent placement in 2004, hx of colon cancer, GIB, gastric and colonic ulcers. - She presented to the ED for evaluation of anemia. - She was previously admitted in 11/2015 with symptomatic anemia and post- prandial chest pain and at that time was taking a lot of NSAIDs. Pt received 4 units of PRBCs during that admission. She underwent EGD/colonoscopy with Dr. Meadows 11/26/15 which revealed multiple medium sized non-bleeding ulcers in the gastric antrum , medium sized non-bleeding ulcers in the duodenal bulb, duodenal inflammation was found int he bulb and second portion of the duodenum, multiple medium sized non-bleeding ulcers throughout the entire examined colon, and a pedunculated poly in the sigmoid colon. - She was also admitted to [facility] in 07/2016 with symptomatic anemia and had an EGD on 07/08/16 --> gastritis, gastric ulcer, duodenitis and hiatal hernia. - Pt had been scheduled to undergo endovascular procedure with IR today with Dr. Montenegro but pre-op labs revealed a significant anemia and pt was sent to the ED for blood transfusion. Her Hgb was 6.5/Hct 31.4, MCV 62.4. She was noted to be Hemoccult positive in the ED. No obvious GIB. - Pt noted to be iron deficient as well and has not been eating well. - Pt received 2 units PRBCs with improvement in her Hgb to 10 and repeat labs with stable H/H - Cont. IV Venofer. She states that in the past oral iron supplements have given her diarrhea. - Appreciate gastroenterology consultation - Pt underwent EGD (09/28) --> patchy erythema in the antrum but no ulcerations or erosions no blood or bleeding and in the duodenum there were multiple AVMs noted in the duodenal bulb and descending duodenum which were ablated with a ball-tipped heater probe. - Protonix 40mg IV BID, convert to po Protonix when pt is off NPO status this evening - Pt recommended for outpt capsule endoscopy - Cont. Carafate - Monitor H/H - Supportive care - DVT prophylaxis with SCDs (2) Arterial vascular disease Status: Acute Plan: - Pt had an outpt CTA of the abd/pelvis which revealed high grade distal aortic stenosis and severe diffuse iliac disease, large cystic left adnexal mass but the mesenteric vessels appear intact and relatively healthy. - The patient was scheduled to undergo endovascular procedure with IR today with Dr. Montenegro but due to anemia this was cancelled. - Pt is very concerned about being able to have this procedure performed because it is significantly limiting her daily life due to claudication. - Discussed with the pt that should she have endovascular stenting that she would likely require anticoagulants and that the risks/benefits of proceeding with this would put her at higher risk of bleeding given her hx of GIB and anemia but she wants to proceed with stenting procedures - IR consulted and nurse reports that pt is planned for endovascular stenting of her aorta today with IR - She has been referred as an outpt to [facility] [employer] for the adnexal mass (3) HTN (hypertension) Status: Chronic Plan: - Home meds continued - Monitor (4) CAD (coronary artery disease) Status: Chronic (5) Tobacco abuse Status: Chronic Plan: - Tobacco cessation. Assessment and Plan Patient examined. Assessment and plan formulated with Nafisa Parker PA-C. I agree with the above. going for endovascular stent of aorta today. recurrent gib and blood loss anemia. s/p iv iron and prbc risk of bleeding of gi tract given to pt prior to stent but she insisted on proceeding. Nafisa Parker Sep 29, 2016 10:22 Marvin Bray MD Sep 29, 2016 21:32
[2016-09-29] MEDS: METOPROLOL TARTRATE 50 MG TAB PO SCH (10:53)
[2016-09-29] MEDS: SUCRALFATE 1 GM TAB PO SCH ×2 (10:53→19:35)
[2016-09-29] MEDS: LOSARTAN 50 MG TAB PO SCH (10:53)
[2016-09-29] MEDS: IRON SUCROSE INJ 200 MG in SODIUM CHLORIDE 0.9% INJ 100 ML IV SCH (11:07)
[2016-09-29] MEDS ORDERED: ceFAZolin 2 GM PREMIX 50 ML ONE (14:22)
[2016-09-29] MEDS ORDERED: MIDAZOLAM HCL 2 MG/2 ML VIAL ONE (14:22)
[2016-09-29] MEDS ORDERED: fentaNYL CITRATE 250 MCG/5 ML AMP ONE (14:22)
[2016-09-29] MEDS ORDERED: HEPARIN SODIUM - IV 10,000 UNITS/10 ML VIAL ONE (14:46)
[2016-09-29] MEDS ORDERED: ENALAPRILAT 2.5 MG/2 ML VIAL ONE (15:59)
[2016-09-29] MEDS ORDERED: IOHEXOL 350 MG/ML 50 ML BTL (for RAD DIAG) ONE (16:15)
--- NOTE | 2016-09-29 16:41 | PD.RAD ---
Post Procedure Progress Note Pre Procedure Diagnosis: (1) Arterial vascular disease Post Procedure Diagnosis: (1) Arterial vascular disease Procedure Date: Sep 29, 2016 Supervising Radiologist: Cali Albarado Assisting Radiologist: Clint Pickens MD Proceduralist/Assist: Josie Gerardo, RT(R)(CV), Yesenia Coelho RT(R)() Anesthesia: Local, Conscious Sedation Plan of Activity Patient to Unit: Nursing Unit Patient Condition: Good Additional Comments: Critical infrarenal aortic stenosis with excellent result following aortic stent placement. See PACS Report for procedural detail/treatment Cali Albarado MD Sep 29, 2016 16:41
[2016-09-29] MEDS: PANTOPRAZOLE SOD 40 MG DELAYED RELEASE TAB PO SCH (19:35)
[2016-09-29] MEDS: REMOVE OLD NICODERM (NICOTINE) PATCH T-DERMAL SCH (19:37)
[2016-09-29] MEDS ORDERED: LOPERAMIDE HCL 2 MG CAP PO ONE (21:00)
[2016-09-29] MEDS ORDERED: LOPERAMIDE HCL 2 MG CAP PO PRN (21:00)
[2016-09-29] MEDS: TEMAZEPAM 15 MG CAP PO PRN (23:00)
[2016-09-30] VITALS (8 sets, daily range): BP systolic 103–156; BP diastolic 57–71; PULSE 72–104; RESP 16–20; TEMP 96–98.6; O2SAT 94–96
[2016-09-30 05:49] LABS: AUTOMATED NEUTROPHIL # 5.9 TH/MM3 (1.8-7.7); BASOPHIL # 0.1 TH/MM3 (0-0.2); BASOPHIL % 1.1 % (0.0-2.0); EOSINOPHIL # 0.2 TH/MM3 (0-0.4); EOSINOPHIL % 2.3 % (0.0-4.0); HEMATOCRIT 31.5 % (35.0-46.0); LYMPH % 13.8 % (9.0-44.0); LYMPHOCYTE # 1.1 TH/MM3 (1.0-4.8); MEAN CELL VOLUME 69.3 FL (80.0-100.0); MEAN CORPUSCULAR HEMOGLOBIN 22.6 PG (27.0-34.0); MEAN CORPUSCULAR HGB CONC 32.6 % (32.0-36.0); MONO % 10.5 % (0.0-8.0); NEUT % 72.3 % (16.0-70.0); PLATELET COUNT 142 TH/MM3 (150-450); RED BLOOD COUNT 4.55 MIL/MM3 (4.00-5.30); RED CELL DISTRIBUTION WIDTH 27.6 % (11.6-17.2); WHITE BLOOD COUNT 8.2 TH/MM3 (4.0-11.0)
[2016-09-30 06:00] LABS: HEMO FLAGS AUTO DIFF
[2016-09-30 08:44] LABS: SCAN/DIFF AUTO DIFF CONFIRMED
[2016-09-30] MEDS: PANTOPRAZOLE SOD 40 MG DELAYED RELEASE TAB PO SCH ×2 (09:00→20:11)
[2016-09-30] MEDS: METOPROLOL TARTRATE 50 MG TAB PO SCH (10:56)
[2016-09-30] MEDS: LOSARTAN 50 MG TAB PO SCH (10:56)
[2016-09-30] MEDS: SUCRALFATE 1 GM TAB PO SCH ×2 (10:57→20:10)
[2016-09-30] MEDS: ASPIRIN 81 MG CHEW TAB CHEW SCH (10:57)
[2016-09-30] MEDS: NICOTINE 21 MG/24 HR PATCH T-DERMAL SCH (10:58)
--- NOTE | 2016-09-30 14:31 | HHI.PR ---
Subjective Remarks no bleeding. feels better. Objective Vitals heart reg lung cta abd s/nt ext no edema Vital Signs Date Time Temp Pulse Resp B/P Pulse Ox O2 Delivery O2 Flow Rate FiO2 09/30/16 12:00 98.6 72 20 129/68 95 09/30/16 08:00 97.3 83 19 156/71 96 09/30/16 04:00 97.7 104 16 103/59 96 09/30/16 00:00 98.1 79 16 128/68 94 09/29/16 20:30 84 09/29/16 20:00 97.3 77 18 142/67 96 09/29/16 17:35 61 18 152/51 99 09/29/16 17:05 62 20 147/81 94 09/29/16 16:50 71 20 157/70 93 09/29/16 16:48 90 09/29/16 16:35 62 18 166/69 97 09/29/16 16:20 97.6 73 20 160/82 94 09/29/16 09/29/16 09/30/16 14:59 22:59 06:59 Intake Total 0 ml 480 ml Output Total 2 ml Balance -2 ml 480 ml Intake Oral 0 ml 480 ml Output Urine Total 2 ml # Voids 2 # Bowel Movements 1 1 Result Diagram: 09/30/16 0418 09/28/16 0346 A/P Problem List: (1) Symptomatic anemia Status: Acute Plan: - Pt is a 75 y/o female with CAD s/p PTCA with stent placement in 2004, hx of colon cancer, GIB, gastric and colonic ulcers. - She presented to the ED for evaluation of anemia. - She was previously admitted in 11/2015 with symptomatic anemia and post- prandial chest pain and at that time was taking a lot of NSAIDs. Pt received 4 units of PRBCs during that admission. She underwent EGD/colonoscopy with Dr. Meadows 11/26/15 which revealed multiple medium sized non-bleeding ulcers in the gastric antrum , medium sized non-bleeding ulcers in the duodenal bulb, duodenal inflammation was found int he bulb and second portion of the duodenum, multiple medium sized non-bleeding ulcers throughout the entire examined colon, and a pedunculated poly in the sigmoid colon. - She was also admitted to [facility] in 07/2016 with symptomatic anemia and had an EGD on 07/08/16 --> gastritis, gastric ulcer, duodenitis and hiatal hernia. - Pt had been scheduled to undergo endovascular procedure with IR with Dr. Montenegro but pre-op labs revealed a significant anemia and pt was sent to the ED for blood transfusion. Her Hgb was 6.5/Hct 31.4, MCV 62.4. She was noted to be Hemoccult positive in the ED. No obvious GIB. - Pt noted to be iron deficient as well and has not been eating well. - Pt received 2 units PRBCs with improvement in her Hgb to 10 and repeat labs with stable H/H - Cont. IV Venofer. She states that in the past oral iron supplements have given her diarrhea. - Appreciate gastroenterology consultation - Pt underwent EGD (09/28) --> patchy erythema in the antrum but no ulcerations or erosions no blood or bleeding and in the duodenum there were multiple AVMs noted in the duodenal bulb and descending duodenum which were ablated with a ball-tipped heater probe. - Protonix 40mg IV BID, convert to po Protonix - Pt recommended for outpt capsule endoscopy - Cont. Carafate -09/29 IR placed endovascular stent in infrrenal Aorta [place] pt tonight then d/c home. She understood the bleeding risks going into the procedure now that she is required to use ASA. (2) Arterial vascular disease Status: Acute Plan: - Pt had an outpt CTA of the abd/pelvis which revealed high grade distal aortic stenosis and severe diffuse iliac disease, large cystic left adnexal mass but the mesenteric vessels appear intact and relatively healthy. - The patient was scheduled to undergo endovascular procedure with IR today with Dr. Montenegro but due to anemia this was cancelled. - Pt is very concerned about being able to have this procedure performed because it is significantly limiting her daily life due to claudication. - Discussed with the pt that should she have endovascular stenting that she would likely require anticoagulants and that the risks/benefits of proceeding with this would put her at higher risk of bleeding given her hx of GIB and anemia but she wants to proceed with stenting procedures - IR consulted and nurse reports that pt is planned for endovascular stenting of her aorta today with IR - She has been referred as an outpt to [facility] for the adnexal mass (3) HTN (hypertension) Status: Chronic Plan: - Home meds continued - Monitor (4) CAD (coronary artery disease) Status: Chronic (5) Tobacco abuse Status: Chronic Plan: - Tobacco cessation. Marvin Bray MD Sep 30, 2016 14:31
[2016-09-30] MEDS: REMOVE OLD NICODERM (NICOTINE) PATCH T-DERMAL SCH (20:13)
[2016-09-30] MEDS: traMADol HCL 50 MG TAB PO PRN (21:26)
[2016-10-01] VITALS: BP_SYST 130; BP_SYST 135; BP_DIAS 75; BP_DIAS 76; PULSE 78; PULSE 79; RESP 19; TEMP 96.2; TEMP 97.6; O2SAT 96; O2SAT 99
[2016-10-01] MEDS: traMADol HCL 50 MG TAB PO PRN (01:22)
[2016-10-01 04:00] VITALS: BP 135/70; PULSE 79; RESP 19; TEMP 97; O2SAT 96
[2016-10-01 08:00] VITALS: BP 130/75; PULSE 122; RESP 19; TEMP 96.9; O2SAT 95
[2016-10-01] MEDS: NICOTINE 21 MG/24 HR PATCH T-DERMAL SCH (08:10)
[2016-10-01] MEDS: LOSARTAN 50 MG TAB PO SCH (08:11)
[2016-10-01] MEDS: PANTOPRAZOLE SOD 40 MG DELAYED RELEASE TAB PO SCH (08:11)
[2016-10-01] MEDS: SUCRALFATE 1 GM TAB PO SCH (08:11)
[2016-10-01] MEDS: METOPROLOL TARTRATE 50 MG TAB PO SCH (08:13)
[2016-10-01] MEDS: ASPIRIN 81 MG CHEW TAB CHEW SCH (08:13)
[2016-10-01 08:27] VITALS: PULSE 93
[2016-10-01] MEDS ORDERED: PANT40TA3 PO (10:16)
[2016-10-01] MEDS ORDERED: TRAM50TA PO (10:16)
[2016-10-01] MEDS ORDERED: ASPI81CH25 CHEW (10:16)
--- NOTE | 2016-10-01 10:17 | HHI.DCPOC ---
Discharge Care Plan Diagnosis: (1) AV malformation of GI tract (2) GI bleed (3) Arterial vascular disease (4) Symptomatic anemia (5) CAD (coronary artery disease) (6) HTN (hypertension) Goals to Promote Your Health * To prevent worsening of your condition and complications * To maintain your health at the optimal level Directions to Meet Your Goals Take your medications as prescribed Follow your dietary instruction Follow activity as directed Keep your appointments as scheduled Take your immunizations and boosters as scheduled If your symptoms worsen call your PCP, if no PCP go to Urgent Care Center or Emergency Room Smoking is Dangerous to Your Health. Avoid second hand smoke Call the 24-hour hour crisis hotline for domestic abuse at Marvin Bray MD Oct 01, 2016 10:17
--- NOTE | 2016-10-01 11:41 | HHI.DS ---
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 Guardado is a pleasant 75 y/o WF with CAD s/p PTCA with stent placement in 2004, hx of colon cancer, GIB, gastric and colonic ulcers, HTN, and tobacco abuse. Pt presented to the ED for evaluation of anemia. She was previously admitted in 11/2015 with symptomatic anemia and post-prandial chest pain. At that time was taking a lot of NSAIDs. Pt received 4 units of PRBCs during that admission. She underwent evaluation with EGD/colonoscopy with Dr. Meadows which revealed multiple medium sized non-bleeding ulcers in the gastric antrum, medium sized non-bleeding ulcers in the duodenal bulb, duodenal inflammation was found int he bulb and second portion of the duodenum, multiple medium sized non-bleeding ulcers throughout the entire examined colon, and a pedunculated poly in the sigmoid colon. She was also admitted to [facility] in 2016 with symptomatic anemia and underwent evaluation with EGD on 07/08/16 which noted gastritis, gastric ulcer, duodenitis and hiatal hernia. She was again taking NSAIDs at that time and reports that she required blood transfusion during that admission. Pt followed with Dr. Aguirre as an outpt and was sent for a CTA of the abd/pelvis which revealed high grade distal aortic stenosis and severe diffuse iliac disease, large cystic left adnexal mass but the mesenteric vessels appear intact and relatively healthy. The patient was scheduled to undergo endovascular procedure with IR today with Dr. Montenegro but pre- op labs revealed a significant anemia and pt was sent to the ED for blood transfusion. Her Hgb was 6.5/Hct 31.4, MCV 62.4. She was noted to be Hemoccult positive in the ED. Pt reports that she has had some intermittent dizziness, dyspnea on exertion for the last few weeks. She has significant claudication which she reports limits her ability to do much at home. She has not been eating well because she can't stand up to cook any food. She denies hematemesis , hematochezia, melena, hematuria. She noted some faint BRBPR on the tissue today when she wiped but otherwise has not noted any active GIB. Pt denies any abdominal pain, palpitations, nausea/vomiting. She has had some minimal reflux. Pt reports that she has been compliant with her Protonix and Carafate. She denies any NSAID use since 07/2016. CBC/BMP: 09/30/16 0418 09/28/16 0346 Significant Findings Laboratory Tests Test 09/29/16 09/30/16 03:44 04:18 Hemoglobin 10.3 GM/DL 10.3 GM/DL (11.6-15.3) (11.6-15.3) Hematocrit 31.2 % 31.5 % (35.0-46.0) (35.0-46.0) Mean Corpuscular Volume 69.3 FL 69.3 FL (80.0-100.0) (80.0-100.0) Mean Corpuscular Hemoglobin 22.8 PG 22.6 PG (27.0-34.0) (27.0-34.0) Red Cell Distribution Width 27.3 % 27.6 % (11.6-17.2) (11.6-17.2) Platelet Count 141 TH/MM3 142 TH/MM3 (150-450) (150-450) Neutrophils (%) (Auto) 72.3 % (16.0-70.0) Monocytes (%) (Auto) 10.5 % (0.0-8.0) Hospital Course (1) Symptomatic anemia - Pt is a 75 y/o female with CAD s/p PTCA with stent placement in 2004, hx of colon cancer, GIB, gastric and colonic ulcers. - She presented to the ED for evaluation of anemia. - She was previously admitted in 11/2015 with symptomatic anemia and post- prandial chest pain and at that time was taking a lot of NSAIDs. Pt received 4 units of PRBCs during that admission. She underwent EGD/colonoscopy with Dr. Meadows 11/26/15 which revealed multiple medium sized non-bleeding ulcers in the gastric antrum , medium sized non-bleeding ulcers in the duodenal bulb, duodenal inflammation was found int he bulb and second portion of the duodenum, multiple medium sized non-bleeding ulcers throughout the entire examined colon, and a pedunculated poly in the sigmoid colon. - She was also admitted to [facility] in 07/2016 with symptomatic anemia and had an EGD on 07/08/16 --> gastritis, gastric ulcer, duodenitis and hiatal hernia. - Pt had been scheduled to undergo endovascular procedure with IR with Dr. Montenegro but pre-op labs revealed a significant anemia and pt was sent to the ED for blood transfusion. Her Hgb was 6.5/Hct 31.4, MCV 62.4. She was noted to be Hemoccult positive in the ED. No obvious GIB. - Pt noted to be iron deficient as well and has not been eating well. - Pt received 2 units PRBCs with improvement in her Hgb to 10 and repeat labs with stable H/H - Given IV Venofer. She states that in the past oral iron supplements have given her diarrhea. - Appreciate gastroenterology consultation - Pt underwent EGD (09/28) --> patchy erythema in the antrum but no ulcerations or erosions no blood or bleeding and in the duodenum there were multiple AVMs noted in the duodenal bulb and descending duodenum which were ablated with a ball-tipped heater probe. - Protonix 40mg IV BID, convert to po Protonix - Pt recommended for outpt capsule endoscopy - Cont. Carafate -09/29 IR placed endovascular stent in infrrenal Aorta She understood the bleeding risks going into the procedure now that she is required to use ASA. -Pt eager for d/c. She had some tachycardia overnight with exertion. Denies cp. I had the staff ambulate her this AM after her metoprolol and her heart rate remained under 100bpm. At rest she runs 60s-70s. She needs to f/u pcp and if exertional tachycardia becomes a problem then her bb may need to be increased in evening. (2) Arterial vascular disease - Pt had an outpt CTA of the abd/pelvis which revealed high grade distal aortic stenosis and severe diffuse iliac disease, large cystic left adnexal mass but the mesenteric vessels appear intact and relatively healthy. - The patient was scheduled to undergo endovascular procedure with IR today with Dr. Montenegro but due to anemia this was cancelled. - Pt is very concerned about being able to have this procedure performed because it is significantly limiting her daily life due to claudication. - Discussed with the pt that should she have endovascular stenting that she would likely require anticoagulants and that the risks/benefits of proceeding with this would put her at higher risk of bleeding given her hx of GIB and anemia but she wants to proceed with stenting procedures - IR consulted and nurse reports that pt is planned for endovascular stenting of her aorta today with IR - She has been referred as an outpt to [facility] for the adnexal mass (3) HTN (hypertension) Status: Chronic (4) CAD (coronary artery disease) Status: Chronic (5) Tobacco abuse Status: Chronic Pt Condition on Discharge: Stable Discharge Disposition: Discharge Home Discharge Instructions DIET: Follow Instructions for: Heart Healthy Diet Activities you can perform: Regular-No Restrictions Follow up Referrals: Gastroenterology - 1 Week with Jefe Perdomo MD PCP Follow-up - [address] Ruiz New Medications: Aspirin (Aspirin Low Strength) 81 Mg Chew 81 MG CHEW DAILY stent #0 EA Continued Medications: Losartan (Losartan) 100 Mg Tab 100 MG PO DAILY Blood Pressure Management #30 Ref 0 TAB Metoprolol Tartrate (Metoprolol Tartrate) 50 Mg Tab 50 MG PO DAILY #30 Ref 0 TAB Pantoprazole (Pantoprazole) 40 Mg Tab 40 MG PO BID Reflux #60 Ref 3 TAB (This prescription has been renewed) Sucralfate (Sucralfate) 1 Gm Tab 1 GM PO BID on empty stomach Duodenal ulcer #120 Ref 0 TAB Tramadol (Tramadol) 50 Mg Tab 50 MG PO Q8H PRN PAIN #30 Ref 0 TAB (This prescription has been renewed) Marvin Bray MD Oct 01, 2016 11:41
[2016-10-01 12:00] VITALS: BP 151/68; PULSE 68; RESP 19; TEMP 97.3; O2SAT 95
--- NOTE | 2016-10-02 09:14 | RADRPT ---
EXAM DATE/TIME: 09/29/2016 14:44 [facility] COMPARISON: No previous studies available for comparison. INDICATIONS : 75-year-old female with history of critical bilateral lower extremity and buttock claudication second ortiz to critical infrarenal aortic stenosis and bilateral inflow disease. Patient presents for angiogr aphy and intervention MEDICAL HISTORY : History of aortic and iliac stenosis, COPD, GI bleed, CAD, HTN, HLD, colonic and gastric polyps, colo n cancer, gastritis, hiatal hernia, anemia, valvular heart disease. SURGICAL HISTORY : History of colon polypectomy, cardiac catheterization with stent placement, EGD, colonoscopy, c-secti on, tubal ligation. ENCOUNTER: Initial ACUITY: 1 month PAIN SCORE: 0/10 FLUORO TIME: 13.54 minutes IMAGE SERIES: 12 ACCESS SITE: Right Femoral artery SEDATION TIME: 60 minutes CONTRAST: 1.) 100 cc Omnipaque (iohexol) 350 MEDICATION(S): 1.) 6 mg midazolam (Versed) IV 2.) 350 mcg fentanyl (Sublimaze) IV 3.) 2.5 mg enalapril (Vasotec) IV 4.) 6000 units Heparin IV DEVICE(S): 1.) Abdominal aorta Infrarenal stent (balloon expanding) 9mm x 59mm x 80cm 2.) Abdominal aorta Infrarenal FUSE COILER balloon 12mm x 80mm x 75cm 3.) Right common femoral artery 6F Starclose OPERATORS: Drs. Pickens and Verena PROCEDURE : 1. Ultrasound-guided puncture of the access site. 2. Conscious sedation with continuous EKG and Oximetry monitoring. 3. Abdominal aortogram and pelvic angiogram 4. Placement of 9 mm covered infrarenal aortic stent was dilated to 12 mm 5. Starclose closure of right common femoral artery access The risks, benefits and alternatives to the procedure were explained and verbal and written consent w as obtained. The site was prepped in sterile fashion. Full sterile technique was used, including ca p, mask, sterile gloves and gown and a large sterile sheet. Hand hygiene and 2% chlorhexidine and/or betadine/alcohol prep was utilized per protocol for cutaneous antisepsis. The skin and subcutaneous tissues were infiltrated with local anesthetic solution. With ultrasound and fluoroscopic guidance the selected artery was punctured and a vascular sheath was placed. 4 Russian flush catheter was advanced into the proximal bile aorta and cholangography was per formed. This confirmed critical stenosis of the infrarenal bile aorta secondary to large bulky eccent roney plaque in the mid infrarenal bile aorta. Sheath was therefore exchanged for a 7 Russian 45 cm neri th which was advanced over an Amplatz wire to the infrarenal aorta. Next, 9 x 59 mm balloon expandabl e covered stent was deployed in the infrarenal abdominal aorta and subsequently dilated with 12 x 80 mm Liguori balloon. Followup angiography demonstrated excellent mammographic results with brisk flow through the stent. Sheath was therefore retracted into the right iliac arteries and angiography repea sveta to reevaluate the extent of iliac stenosis following improvemed inflow. Wires and catheters were then removed and right common femoral artery access site was closed with Starclose device. FINDINGS: Critical stenosis of the mid infrarenal abdominal aorta secondary to bulky eccentric calcified plaque . Improved iliac artery caliber following aortic stent placement. Tandem mild stenosis of the right c ommon iliac artery and diffuse moderate stenosis of the right external iliac artery. There is also mi ld to moderate diffuse stenosis of the left common iliac artery and mild circumferential stenosis of the proximal to mid external iliac artery. There is mild stenosis of the mid to distal right common f emoral artery. Otherwise, visualized femoral arteries are patent. The patient tolerated the procedure well and there were no complications. Conscious sedation was performed with the prescribed dosages and duration as above in the presence of an independent trained radiology nurse to assist in the monitoring of the patient. EKG and oximetry remained stable throughout the procedure. CONCLUSION: 1. Short segment of critical stenosis of the mid infrarenal abdominal aorta secondary to bulky eccent roney plaque with excellent angiographic result following placement of 9 x 59 mm balloon-expandable cov ered stent was dilated to 12 mm. 2. Diffuse bilateral iliac artery disease, as above. Given the extent of iliac disease and immediate improvement in iliac artery diameter following aortic stent placement, decision was made not to perfo rm any iliac intervention at this time. Will reassess patient's symptoms and reconsider iliac interve ntion if clinically indicated. Cali Albarado MD on October 02, 2016 at 8:57 Board Certified Radiologist. This report was verified electronically.
== END 2016-10-01 13:07 | disposition home or self-care (01) | DRG 812 ==
LOC: NEPE 10:46 → NEDA 14:03 → N07A 17:37
PROVIDERS: ADMIT Hospitalist; ATTEND Hospitalist
PROC: 0D598ZZ Destruction of Duodenum, Via Natural or Artificial Opening Endoscopic (ICD-10-PCS; principal; 2016-09-28 09:00)
DX: D62 Acute posthemorrhagic anemia (principal); J44.9 Chronic obstructive pulmonary disease, unspecified; K92.2 Gastrointestinal hemorrhage, unspecified; I34.0 Nonrheumatic mitral (valve) insufficiency; I35.0 Nonrheumatic aortic (valve) stenosis; I10 Essential (primary) hypertension; Q27.33 Arteriovenous malformation of digestive system vessel; I25.10 Atherosclerotic heart disease of native coronary artery without angina pectoris; F17.200 Nicotine dependence, unspecified, uncomplicated; E78.5 Hyperlipidemia, unspecified; I73.9 Peripheral vascular disease, unspecified; Z85.048 Personal history of other malignant neoplasm of rectum, rectosigmoid junction, and anus; Z86.010 Personal history of colon polyps; Z87.11 Personal history of peptic ulcer disease; Z95.5 Presence of coronary angioplasty implant and graft; K29.70 Gastritis, unspecified, without bleeding
CPT/HCPCS: 36200; 36430; 37236; 75625; 76937; 80048; 80053; 83540; 83550; 83735; 85025; 85027; 85610; 85730; 86850; 86900; 86901; 86920; 96361; 96374; 99152; 99153; 99211; C1725; C1760; C1769; C1874; C1887; C1894; C9113; G0463; J0690; J1200; J1644; J1756; J2250; J3010; J7050; P9016; Q9967

== ENCOUNTER 2016-12-18 08:40 | Emergency (ER) | payer MEDICARE ==
[~2016-12-18] VITALS: Ht 157.5 cm; Wt 70.0 kg
[~2016-12-18 08:40] MED LIST changes: +ASPI81CH25 CHEW; -BACT800T5 PO; -LOSA50TA PO; -OMPR20CCR PO
[2016-12-18 08:43] VITALS: BP 134/64; PULSE 80; RESP 15; TEMP 98.2; O2SAT 99
--- NOTE | 2016-12-18 10:00 | PD ---
HPI Chief Complaint: Abnormal Results Time Seen by Provider: 09:59 Travel History International Travel<30 days: No Contact w/Intl Traveler<30days: No Traveled to known affect area: No History of Present Illness HPI 76-year-old female came to the emergency room with history of low hemoglobin from a blood test that was done on . Patient says that her primary care called her the next day which was Sunday because hemoglobin was 7.6 and she was asked to come to the emergency room to be transfused. Patient had things that needed to be taken care off and hence she is here today. No history of lightheadedness, shortness of breath or any other symptoms that's worse than usual. Patient says her last hemoglobin was 10.5 which was 1-2 months ago. She has history of GI bleed and is on 1 baby aspirin every day. She is also taking Carafate and Protonix. She did not notice any blood in her stool. No history of vomiting blood. Vital signs are stable. [facility] Past Medical History Narrative Medical List of her past medical, surgical, social and family history is reviewed from the nursing note. Cancer: Yes (COLON CANCER) Cardiac Catheterization: Yes Cardiovascular Problems: Yes Chemotherapy: Yes (12 YRS AGO) Chest Pain: Yes COPD: Yes Diabetes: No Endocrine: No Gastrointestinal Disorders: Yes (GI BLEED, GASTRITISm, peptic and duodenal ulcers) Genitourinary: No Hiatal Hernia: Yes Hypertension: Yes Immune Disorder: No Musculoskeletal: No Neurologic: No Reproductive: No Respiratory: No Immunizations Current: Yes Radiation Therapy: Yes (12 YRS AGO) Thyroid Disease: No Ulcer: Yes ?: Not Tubal Ligation: Yes Past Surgical History AICD: No Section: Yes Joint Replacement: No Pacemaker: No Tonsillectomy: Yes Social History Alcohol Use: No Tobacco Use: Yes (1 ppd) Substance Use: No Allergies-Medications (Allergen,Severity, Reaction): Coded Allergies: No Known Allergies (Verified , 09/27/16) Comments No known drug allergies. Reported Meds & Prescriptions Reported Meds & Active Scripts Active Aspirin Low Strength (Aspirin) 81 Mg Chew 81 Mg CHEW DAILY Tramadol (Tramadol HCl) 50 Mg Tab 50 Mg PO Q8H PRN Pantoprazole (Pantoprazole Sodium) 40 Mg Tab 40 Mg PO BID Reported Metoprolol Tartrate 50 Mg Tab 50 Mg PO DAILY Losartan (Losartan Potassium) 100 Mg Tab 100 Mg PO DAILY Sucralfate 1 Gm Tab 1 Gm PO BID on empty stomach Narrative Medication List of her home medications reviewed from the nursing note. Review of Systems Except as stated in HPI: all other systems reviewed are Neg Physical Exam Narrative GENERAL: Awake, alert, no obvious distress SKIN: Focused skin assessment warm/dry. HEAD: Atraumatic. Normocephalic. EYES: Pupils equal and round. No scleral icterus. No injection or drainage. ENT: No nasal bleeding or discharge. Mucous membranes pink and moist. NECK: Trachea midline. No JVD. CARDIOVASCULAR: Regular rate and rhythm. No murmur appreciated. RESPIRATORY: No accessory muscle use. Clear to auscultation. Breath sounds equal bilaterally. GASTROINTESTINAL: Abdomen soft, non-tender, nondistended. Hepatic and splenic margins not palpable. MUSCULOSKELETAL: No obvious deformities. No clubbing. No cyanosis. No edema. NEUROLOGICAL: Awake and alert. No obvious cranial nerve deficits. Motor grossly within normal limits. Normal speech. PSYCHIATRIC: Appropriate mood and affect; insight and judgment normal. Data Data Last Documented VS Orders Orders Complete Blood Count With Diff (12/18/16 10:11) Basic Metabolic Panel (Bmp) (12/18/16 10:11) Prothrombin Time / Inr (Pt) (12/18/16 10:11) Type And Screen (12/18/16 10:11) ^ Saline Lock (12/18/16 10:11) Ed Discharge Order (12/18/16 12:31) Labs Laboratory Tests Test 12/18/16 10:05 White Blood Count 6.8 TH/MM3 Red Blood Count 3.50 MIL/MM3 Hemoglobin 8.4 GM/DL Hematocrit 27.1 % Mean Corpuscular Volume 77.3 FL Mean Corpuscular Hemoglobin 24.1 PG Mean Corpuscular Hemoglobin Concent 31.2 % Red Cell Distribution Width 22.0 % Platelet Count 248 TH/MM3 Mean Platelet Volume 8.4 FL Neutrophils (%) (Auto) 77.9 % Lymphocytes (%) (Auto) 12.1 % Monocytes (%) (Auto) 6.8 % Eosinophils (%) (Auto) 2.0 % Basophils (%) (Auto) 1.2 % Neutrophils # (Auto) 5.3 TH/MM3 Lymphocytes # (Auto) 0.8 TH/MM3 Monocytes # (Auto) 0.5 TH/MM3 Eosinophils # (Auto) 0.1 TH/MM3 Basophils # (Auto) 0.1 TH/MM3 CBC Comment DIFF FINAL Differential Comment Prothrombin Time 11.4 SEC Prothromb Time International Ratio 1.0 RATIO Blood Urea Nitrogen 23 MG/DL Creatinine 0.93 MG/DL Random Glucose 85 MG/DL Calcium Level 8.9 MG/DL Sodium Level 135 MEQ/L Potassium Level 4.2 MEQ/L Chloride Level 106 MEQ/L Carbon Dioxide Level 18.5 MEQ/L Anion Gap 11 MEQ/L Estimat Glomerular Filtration Rate 58 ML/MIN MDM Medical Decision Making Medical Screen Exam Complete: Yes Emergency Medical Condition: Yes Medical Record Reviewed: Yes Differential Diagnosis Anemia, lab error Narrative Course 10:26 AM repeat blood test has been ordered. Awaiting for blood test result. If the hemoglobin and indeed his low patient will be transfused. 11:09 AM hemoglobin today is 8.5. I do not see a reason to transfuse her with that hemoglobin especially since that she is asymptomatic in the emergency room. She'll have to follow up with her primary care. Procedures EKG Prior to Arrival: No HemaPrompt Point of Care Internal Pos. & Neg. Controls: Passed Fecal Specimen Occult Blood: Negative Diagnosis Primary Impression: Chronic anemia Referrals: Primary Care Physician Additional Instructions: Please follow-up with your primary care physician. Hemoglobin today was 8.5 which does not require emergent transfusion. Please follow-up with a GI physician as well. Return to the ER if the condition worsens or any other new concerns. Continue taking [id number] iron supplements like you have been. Med/Other Pt SpecificInfo: No Change to Meds Disposition: 01 DISCHARGE HOME Condition: Stable Jaquan Cotton MD Dec 18, 2016 10:00
[2016-12-18 10:27] LABS: AUTOMATED NEUTROPHIL # 5.3 TH/MM3 (1.8-7.7); BASOPHIL # 0.1 TH/MM3 (0-0.2); BASOPHIL % 1.2 % (0.0-2.0); EOSINOPHIL # 0.1 TH/MM3 (0-0.4); HEMATOCRIT 27.1 % (35.0-46.0); HEMO FLAGS DIFF FINAL; LYMPH % 12.1 % (9.0-44.0); LYMPHOCYTE # 0.8 TH/MM3 (1.0-4.8); MEAN CELL VOLUME 77.3 FL (80.0-100.0); MEAN CORPUSCULAR HEMOGLOBIN 24.1 PG (27.0-34.0); MEAN CORPUSCULAR HGB CONC 31.2 % (32.0-36.0); MONO % 6.8 % (0.0-8.0); NEUT % 77.9 % (16.0-70.0); PLATELET COUNT 248 TH/MM3 (150-450); WHITE BLOOD COUNT 6.8 TH/MM3 (4.0-11.0)
[2016-12-18 10:41] LABS: PROTHROMBIN TIME - PATIENT 11.4 SEC (9.8-11.6)
[2016-12-18 11:02] LABS: BICARBONATE 18.5 MEQ/L (21.0-32.0); POTASSIUM 4.2 MEQ/L (3.5-5.1)
== END 2016-12-18 12:43 | disposition home or self-care (01) ==
LOC: NEPC 08:40
DX: D64.89 Other specified anemias (principal); I10 Essential (primary) hypertension; F17.200 Nicotine dependence, unspecified, uncomplicated; Z79.82 Long term (current) use of aspirin; Z87.19 Personal history of other diseases of the digestive system; Z86.79 Personal history of other diseases of the circulatory system; Z87.09 Personal history of other diseases of the respiratory system; Z85.038 Personal history of other malignant neoplasm of large intestine
CPT/HCPCS: 80048; 85025; 85610; 86850; 86900; 86901; 99283